=== PATIENT | male | born 2000 | race Two or more races ===

== ENCOUNTER 2022-01-06 20:30 | Emergency (ER) | payer OTHER ==
[~2022-01-06] VITALS: Ht 170.2 cm; Wt 74.4 kg
[2022-01-06] MEDS ORDERED: CIPRO500 MG PO (23:13)
[2022-01-06] MEDS ORDERED: ZOFRAN8 MG PO (23:13)
[2022-01-06] MEDS ORDERED: PEPCID AC20 MG PO (23:13)
== END 2022-01-06 23:42 | disposition home or self-care (01) ==
LOC: ER 20:30
DX: K52.89 Other specified noninfective gastroenteritis and colitis (principal)

== ENCOUNTER 2024-01-25 20:50 | Emergency (ER) | payer OTHER ==
[~2024-01-25] VITALS: Ht 170.2 cm; Wt 72.6 kg
[~2024-01-25 20:50] MED LIST: CIPRO500 MG PO; PEPCID AC20 MG PO; ZOFRAN8 MG PO
[2024-01-26] MEDS ORDERED: KETOROLAC TROMETHAMINE 30 MG VIAL IM ONE (00:15)
[2024-01-26] MEDS ORDERED: KETOROLAC TROMETHAMINE 30 MG VIAL ONE (00:16)
[2024-01-26 00:33] LABS: HEMATOCRIT 44.6 % (39.0-48.0); HEMOGLOBIN 15.6 g/dL (13-16.00); MEAN CORPUSCULAR HEMOGLOBIN 29.7 pg (27.00-32.0); MEAN CORPUSCULAR HGB CONC 34.9 g/dl (32.0-36.0); PLATELET COUNT 176 K/uL (150-450); RED BLOOD COUNT 5.25 M/uL (4.00-6.00); RED CELL DISTRIBUTION WIDTH 13.1 % (11.5-14.5)
[2024-01-26 00:54] LABS: CALCIUM 9.3 mg/dL (8.5-10.1); CREATININE SERUM 1.11 mg/dL (0.70-1.30); GFR 82.09; POTASSIUM 3.64 mEq/L (3.5-5.1)
[2024-01-26 01:26] LABS: URINE APPEARANCE Turbid; URINE BILIRRUBIN Negative (NEGATIVE); URINE BLOOD Negative; URINE COLOR Yellow; URINE GLUCOSE Negative (NEGATIVE); URINE LEUKOCYTE Negative; URINE NITRATE Negative; URINE PROTEIN Negative (NEGATIVE)
[2024-01-26 01:30] LABS: URINE BACTERIA 11.3 uL (0.0-1933); URINE EPITHELIAL CELLS 1.5 uL (0.0-38.8)
[2024-01-26 01:32] LABS: URINE RBC 0.7 uL (0.0-20.8)
== END 2024-01-26 02:08 | disposition home or self-care (01) ==
LOC: ER 20:52
PROVIDERS: Emergency Medicine
DX: M62.830 Muscle spasm of back (principal); R10.9 Unspecified abdominal pain; Z88.0 Allergy status to penicillin; K59.01 Slow transit constipation